=== PATIENT | female | born 1960 | race African-American/Black ===

== ENCOUNTER 2018-03-17 19:57 | Emergency (ER) | payer SELFPAY ==
[2018-03-17] MEDS ORDERED: OSTELTAMIVIR 75 MG CAP PO ONE (20:19)
[2018-03-17] MEDS ORDERED: ACETAMINOPHEN 500 MG TABLET PO ONE (20:25)
--- NOTE | 2018-03-17 20:25 | Emergency Department Record ---
History of Present Illness - General Chief Complaint: Flu Like Symptoms Stated Complaint: BODY ACHE/COUGH Time Seen by Provider: 03/17/18 20:02 Source: Patient, Family Mode of Arrival: Ambulatory Limitations: No limitations - History of Present Illness Initial Comments: 57 yo female presents with one day of cough, fevers, aches. No shortness of breath. She arrived from [facility] one week ago. She was asymptomatic prior to travel, during travel and up until yesterday. Her daughter that she lives with tested positive for influenza A a few days ago. She is not a smoker, no underlying heart or lung disease. MD Complaint: Cough, Fever, Nasal congestion -: Days(s) (1) Severity: Moderate Quality: Aching Consistency: Constant Improves With: Nothing Worsens With: Other (Cough) Associated Symptoms: Chills, Cough, Fever, Other (Body aches) Treatments Prior to Arrival: Acetaminophen, Ibuprofen - Related Data Previous Rx's Medication Instructions Recorded Oseltamivir Phosphate [Tamiflu] 75 mg PO BID #10 capsule 03/17/18 Allergies Allergy/AdvReac Type Severity Reaction Status Date / Time No Known Drug Allergies Allergy Verified 03/17/18 20:24 Review of Systems Constitutional: Reports: Chills, Fever, Malaise Eyes: Denies: Eye discharge ENT: Reports: Congestion. Denies: Throat pain Respiratory: Reports: Cough. Denies: Dyspnea, Wheezes Cardiovascular: Denies: Chest pain, Palpitations, Syncope Endocrine: Denies: Fatigue Gastrointestinal: Reports: Nausea. Denies: Abdominal pain, Diarrhea, Vomiting Genitourinary: Denies: Dysuria Musculoskeletal: Reports: Myalgia. Denies: Arthralgia, Back pain Skin: Denies: Bruising, Change in color, Rash Neurological: Reports: Headache. Denies: Numbness, Weakness Psychiatric: Denies: Anxiety Hematological/Lymphatic: Denies: Blood Clots, Easy bleeding, Easy bruising, Swollen glands Past Medical History - SOCIAL HISTORY Smoking Status: Never smoker Alcohol Use: None Drug Use: None - RESPIRATORY Hx Respiratory Disorders: No - CARDIOVASCULAR Hx Cardio Disorders: No - NEURO Hx Neuro Disorders: No - GI Hx GI Disorders: No - Hx Genitourinary Disorders: No - ENDOCRINE Hx Endocrine Disorders: No - MUSCULOSKELETAL Hx Musculoskeletal Disorders: No - PSYCH Hx Psych Problems: No - HEMATOLOGY/ONCOLOGY Hx Hematology/Oncology Disorders: No Family Medical History Any Significant Family History?: No Family Hx Comment (NOT TO BE USED IN PLACE OF ITEMS BELOW): denies Physical Exam - General General Appearance: Alert, Oriented x3, Cooperative, No acute distress Limitations: No limitations - Head Head exam: Atraumatic, Normal inspection - Eye Eye exam: Normal appearance, PERRL. negative: Conjunctival injection, Scleral icterus - ENT ENT exam: Normal exam, Mucous membranes moist, Normal orophraynx. negative: Mucous membranes dry Ear exam: Normal external inspection Nasal Exam: Normal inspection Mouth exam: Normal external inspection Throat exam: Normal inspection. negative: Tonsillar erythema, Tonsillomegaly, Tonsillar exudate, R peritonsillar mass, L peritonsillar mass - Neck Neck exam: Normal inspection, Full ROM. negative: Lymphadenopathy, Tenderness - Respiratory Respiratory exam: Normal lung sounds bilaterally. negative: Accessory muscle use, Chest wall tenderness, Decreased breath sounds, Prolonged expiratory, Respiratory distress, Rhonchi, Stridor, Wheezes - Cardiovascular Cardiovascular Exam: Regular rate, Normal rhythm, Normal heart sounds - GI/Abdominal GI/Abdominal exam: Soft. negative: Tenderness - Rectal Rectal exam: Deferred - exam: Deferred - Extremities Extremities exam: Normal inspection - Back Back exam: Denies: CVA tenderness (R), CVA tenderness (L) - Neurological Neurological exam: Alert, Oriented X3. negative: Altered - Psychiatric Psychiatric exam: Normal affect, Normal mood - Skin Skin exam: Dry, Intact, Normal color, Warm Course - Reevaluation(s) Reevaluation #1: The patient did travel recently but she was asymptomatic until exposure to her Influenza A confirmed daughter. She will be treated for Influenza A 03/17/18 20:23 03/17/18 20:52 The influenza screen is negative. I explained this is still likely a false positive. She was given Tamiflu in the ED. We discussed returning to the ED if worse. 03/17/18 22:10 The CXR was negative for acute process 03/17/18 22:11 HR and temperature improved at DC Disposition Disposition: Discharge Clinical Impression: Influenza A Disposition: Home, Self-Care Condition: (1) Good Instructions: Influenza (ED) Additional Instructions: Rest and stay well hydrated You are contagious. Cover when you cough and wash your hands frequently Return for a recheck if worse, any new concerns Prescriptions: Oseltamivir Phosphate [Tamiflu] 75 mg PO BID #10 capsule Forms: Patient Portal Access Time of Disposition: 22:10 Quality - Quality Measures Quality Measures: N/A - Blood Pressure Screening Does Patient Have Any of the Following: No Blood Pressure Classification: Normal BP Reading Systolic Measurement: 99 Diastolic Measurement: 71 Screening for High Blood Pressure: < Normal BP, F/U Not Required > [G8783]
[2018-03-17 20:49] LABS: INFLUENZA A NEGATIVE (NEGATIVE); INFLUENZA B NEGATIVE (NEGATIVE)
--- NOTE | 2018-03-19 10:35 | RADIOLOGY REPORT ---
EXAM: CHEST, TWO VIEWS HISTORY: COUGH. FEVER. TECHNIQUE: Upright PA and lateral views of the chest were obtained. Comparison: None. FINDINGS: The heart is not enlarged and the pulmonary vasculature is nondilated. There is mild elevation of the left hemidiaphragm secondary to gas distended splenic flexure of the colon. No definite lung consolidation is seen. Relative increased opacity in the medial right base on the frontal view likely relates to superimposition of normal vascular and osseous structures rather than mild air space disease. No costophrenic angle blunting or pneumothorax. There is mild levoconvex curvature of the mid to lower thoracic spine. IMPRESSION: NO CONVINCING RADIOGRAPHIC EVIDENCE OF ACUTE CARDIOPULMONARY DISEASE. JOB NUMBER: [id number] [facility]
== END 2018-03-17 21:54 | disposition home or self-care (01) ==
LOC: ER 19:57
DX: J10.1 Influenza due to other identified influenza virus with other respiratory manifestations (principal)
CPT/HCPCS: 71046; 87400; 99283

== ENCOUNTER 2018-04-12 10:41 | Emergency (ER) | payer MEDICAID ==
--- NOTE | 2018-04-12 11:06 | Emergency Department Record ---
History of Present Illness - General Chief Complaint: Abdominal Pain Stated Complaint: ABD PAIN 2 YEARS Time Seen by Provider: 04/12/18 10:56 Source: Patient, Family Mode of Arrival: Ambulatory Limitations: No limitations - History of Present Illness Initial Comments: The patient is here due to having upper AP off and on for 2 years. She states eating sometimes makes the pain worse. There is no hx of nausea, vomiting, diarrhea, fever, or dysuria. The patient denies any hx of any previous abdominal surgeries. She has been in this country [place] 1 month and does have an appointment with a PCP in 22 days. The patient states this episodes has been present for 3-4 days and she has been taking Pepto Bismal at home. MD Complaint: Abdominal pain Onset/Timin -: Year(s) Location: Periumbilical, LUQ, RUQ Radiation: None Migration to: No migration Severity scale (1-10): 6 Consistency: Intermittent Improves With: Nothing Worsens With: Nothing Associated Symptoms: Denies other symptoms - Related Data Patient : No Home Medications Medication Instructions Recorded Confirmed Last Taken No Home Med [NO HOME MEDS] 04/12/18 04/12/18 Unknown Allergies Allergy/AdvReac Type Severity Reaction Status Date / Time No Known Drug Allergies Allergy Verified 04/12/18 10:55 Travel Screening - Travel/Exposure Within Last 30 Days Have you traveled within the last 30 days?: No Review of Systems Constitutional: Denies: Chills, Fever Eyes: Denies: Eye discharge ENT: Denies: Congestion Respiratory: Denies: Dyspnea Cardiovascular: Denies: Arrhythmia Endocrine: Denies: Fatigue Gastrointestinal: Reports: Abdominal pain. Denies: Diarrhea, Nausea, Vomiting Genitourinary: Denies: Dysuria Musculoskeletal: Denies: Arthralgia Neurological: Denies: Abnormal gait Past Medical History - SOCIAL HISTORY Smoking Status: Never smoker Alcohol Use: None Drug Use: None - RESPIRATORY Hx Respiratory Disorders: No - CARDIOVASCULAR Hx Cardio Disorders: No - NEURO Hx Neuro Disorders: No - GI Hx GI Disorders: No - Hx Genitourinary Disorders: No - ENDOCRINE Hx Endocrine Disorders: No - MUSCULOSKELETAL Hx Musculoskeletal Disorders: No - PSYCH Hx Psych Problems: No - HEMATOLOGY/ONCOLOGY Hx Hematology/Oncology Disorders: No Family Medical History Any Significant Family History?: No Family Hx Comment (NOT TO BE USED IN PLACE OF ITEMS BELOW): denies Physical Exam - General General Appearance: Alert, Oriented x3, Cooperative, No acute distress - Head Head exam: Atraumatic, Normocephalic, Normal inspection - Eye Eye exam: Normal appearance, PERRL, EOMI - Neck Neck exam: Normal inspection, Full ROM. negative: Tenderness - Respiratory Respiratory exam: Normal lung sounds bilaterally. negative: Respiratory distress - Cardiovascular Cardiovascular Exam: Regular rate, Normal rhythm, Normal heart sounds - GI/Abdominal GI/Abdominal exam: Soft, Normal bowel sounds, Tenderness (There is mild diffuse upper abdominal tenderness but the abdomen is very soft. ). negative: Distended , Guarding, Mass, Rebound, Rigid - Extremities Extremities exam: Normal inspection, Full ROM, Normal capillary refill. negative: Tenderness - Neurological Neurological exam: Alert. negative: Motor sensory deficit Course Vital Signs 04/12/18 10:51 Temperature 98.4 F Pulse Rate 92 H Respiratory 20 Rate Blood Pressure 149/81 Pulse Ox 100 - Reevaluation(s) Reevaluation #1: The patient is doing well at this time. I did discuss the neg CT and the need to stop the Pepto and to start Prilosec OTC. She is to eat a very bland diet and keep her appointment with her PCP in 3 weeks. 04/12/18 12:05 Medical Decision Making - Data Complexity MDM Data: Labs Ordered and/or Reviewed, X-Ray Ordered and/or Reviewed - Lab Data Result diagrams: 04/12/18 11:10 04/12/18 11:10 - Radiology Data Radiology results: Report reviewed (CT: Neg for acute issues or pathology. Pos for constipation.) Disposition Disposition: Discharge Clinical Impression: Chronic abdominal pain Disposition: Home, Self-Care Condition: (2) Stable Instructions: Constipation (ED), Abdominal Pain (ED) Additional Instructions: Please stop the Pepto Bismal and start Prilosec OTC for a month. Please keep your appointment with your PCP for next month. Return to the ER for any worsening symptoms. Forms: Patient Portal Access Time of Disposition: 12:06 Quality - Quality Measures Quality Measures: N/A - Blood Pressure Screening View Details: Yes Does Patient Have Any of the Following: No Blood Pressure Classification: Pre-Hypertensive BP Reading Systolic Measurement: 149 Diastolic Measurement: 81 Screening for High Blood Pressure: < Pre-Hypertensive BP, F/U Documented > [ G8950] Pre-Hypertensive Follow-up Interventions: Referral to alternative/primary care provider.
[2018-04-12 11:21] LABS: HEMOGLOBIN 13.9 gm/dl (11.6-16.0); MEAN CELL VOLUME 85.3 fl (81-97); MEAN CORPUSCULAR HEMOGLOBIN 27.6 pg (27-33); MEAN CORPUSCULAR HGB CONC 32.3 g/dl (32-36); PLATELET COUNT 171 K/uL (130-400); RED BLOOD COUNT 5.04 M/uL (3.80-5.40); RED CELL DISTRIBUTION WIDTH 14.1 % (11.5-14.5); WHITE BLOOD COUNT W/O DIFF 4.9 K/uL (4.2-12.2)
[2018-04-12 11:31] LABS: BLOOD UREA NITROGEN 12 mg/dL (6-20); CREATININE 0.7 mg/dL (0.5-0.9); EST GLOMERULAR FILTRATION RATE > 60 mL/min; LIPASE 29 U/L (13-60); TOTAL PROTEIN 8.6 g/dL (6.6-8.7)
[2018-04-12 11:33] LABS: GLUCOSE,RANDOM 97 mg/dL (74-109); PLATELET ESTIMATE NORMAL (NORMAL)
[2018-04-12 11:36] LABS: ALBUMIN 4.9 g/dL (4.0-5.0); ALKALINE PHOSPHATASE 84 U/L (35-104); ALT/SGPT 31 U/L (<33); AST/SGOT 18 U/L (10.0-35.0)
[2018-04-12 11:45] LABS: BILIRUBIN,DIRECT < 0.2 mg/dL (0-0.3)
--- NOTE | 2018-04-14 15:48 | CT SCAN REPORT ---
DATE: 04/12/2018 at 1119 hours. EXAM: CT OF THE ABDOMEN AND PELVIS WITHOUT CONTRAST. HISTORY: Generalized abdominal pain. Constipation. TECHNIQUE: Helical CT examination of the abdomen and pelvis was performed without oral or intravenous contrast administration. Lack of oral and intravenous contrast utilization limits evaluation of the bowel and solid viscera, respectively. FINDINGS: Linear scarring versus atelectasis is present within the anterior right lung base. Minor dependent atelectasis in each lung base. No pleural or pericardial effusion. The heart is not enlarged. The liver, spleen, pancreas , adrenal glands, and right kidney are normal in appearance. There is minor fluid density prominence centrally in the upper pole of the left kidney measuring 10 x 12 mm. This is consistent with a cyst or, less likely, caliectasis. The left kidney is otherwise normal in appearance. The gallbladder is unremarkable, and no gross biliary ductal dilatation is seen. No intraabdominal nor retroperitoneal lymphadenopathy. Mild, diffuse atherosclerosis without aneurysmal dilatation of the abdominal aorta nor iliac arteries. No definite pelvic mass, lymphadenopathy, or free pelvic fluid. No intrinsic urinary bladder abnormality is seen. There is a moderate volume of stool throughout the colon and rectum. The appendix is visualized and is normal in appearance. No lytic or blastic bone lesion. There are degenerative changes scattered within the visualized spine and hips. IMPRESSION: 1. NO CONVINCING CT EVIDENCE OF AN ACUTE INTRAABDOMINAL NOR INTRAPELVIC PROCESS , THOUGH EVALUATION IS LIMITED BY LACK OF ORAL AND INTRAVENOUS CONTRAST UTILIZATION. 2. NOT MENTIONED ABOVE IS APPARENT WALL THICKENING IN THE PROXIMAL STOMACH, LIKELY DUE TO INCOMPLETE DISTENSION; THOUGH A MUCOSAL ABNORMALITY IS NOT ENTIRELY EXCLUDED. 3. SMALL AREA OF FLUID DENSITY WITHIN THE UPPER LEFT RENAL SINUS CONSISTENT WITH A SMALL CYST OR, LESS LIKELY, FOCAL CALIECTASIS. 4. MODERATE AMOUNT OF STOOL THROUGHOUT THE COLON AND RECTUM. NORMAL APPENDIX. JOB NUMBER: [id number] [facility]
== END 2018-04-12 12:27 | disposition home or self-care (01) ==
LOC: ER 10:41
DX: R10.12 Left upper quadrant pain (principal); R10.11 Right upper quadrant pain
CPT/HCPCS: 74176; 80048; 80076; 83690; 85027; 99283; 99284